=== PATIENT | female | born 1995 | race Caucasian/White ===

== ENCOUNTER 2019-01-28 13:56 | Observation (INO) | payer OTHER ==
[2019-01-28 14:40] LABS: Appearance SLIGHTLY CLOUDY (CLEAR); Bilirubin NEGATIVE (NEGATIVE); Blood NEGATIVE Ery/ul (0-5); Glucose NEGATIVE (NEGATIVE); Ketones NEGATIVE (NEGATIVE); Leukocyte Esterase NEGATIVE (NEGATIVE); Mucus SLIGHT /HPF (NEGATIVE); Nitrite NEGATIVE (NEGATIVE); Protein,Urine Dip NEGATIVE (Negative); Specific Gravity 1.012 (1.005-1.025); Urobilinogen NEGATIVE mg/dL (0-1)
[2019-01-28 14:57] LABS: Amphetamine,Urine NEGATIVE (NEGATIVE); Barbiturate,Urine NEGATIVE (NEGATIVE); Benzodiazepine,Urine NEGATIVE (NEGATIVE); Cocaine,Urine NEGATIVE (NEGATIVE); Methadone,Urine NEGATIVE (NEGATIVE); Opiate,Urine NEGATIVE (NEGATIVE); PCP,Urine NEGATIVE (NEGATIVE); THC,Urine NEGATIVE (NEGATIVE)
[2019-01-28 16:03] VITALS: BP 128/78; PULSE 75
== END 2019-01-28 15:58 | disposition home or self-care (01) ==
LOC: UNDOADMOB 13:56 → OB 13:56 → UNDODISOB 15:58
PROVIDERS: ADMIT Family Medicine; ATTEND Family Medicine
DX: Z34.83 Encounter for supervision of other normal pregnancy, third trimester (principal)
CPT/HCPCS: 80307; 81001; G0378

== ENCOUNTER 2020-02-11 07:38 | Emergency (ER) | payer OTHER ==
--- NOTE | 2020-02-11 08:07 | ERPHSYRPT ---
- History of Present Illness Time Seen by Provider: 02/11/20 07:55 Source: patient Exam Limitations: no limitations Patient Subjective Stated Complaint: pt here for headache to back of head for since last night Triage Nursing Assessment: pt alert, walked in, resp easy, skin w/d/p. has face mask on, moves all ext well. Physician History: This is a 24-year-old white female who states that she is having the worst headache she is ever had. She had another episode of the same 1 month ago. She states that she has no history of migraines. She does not recall any trauma to her head. Patient states both of these last 2 headaches have occurred around the time of her menstrual period. patient denies flulike symptoms. Patient drove herself to the emergency department. Timing/Duration: yesterday Quality: aching, throbbing Head Pain Location: occipital Severity of Pain-Max: moderate Severity of Pain-Current: moderate Recent Head Trauma: no recent headache/trauma Modifying Factors: Improves With: exposure to light, noise Associated Symptoms: denies symptoms Previous symptoms: same symptoms as today (Occurred once before approximately 1 month ago) Allergies/Adverse Reactions: No Known Drug Allergies Allergy (Verified 02/11/20 07:49) Home Medications: Norgestimate-Ethinyl Estradiol [Tri-Sprintec] 1 ea DAILY 02/11/20 [History] clonazePAM [Clonazepam] 1 ea TID 02/11/20 [History] Hx Tetanus, Diphtheria Vaccination/Date Given: No Hx Influenza Vaccination/Date Given: No Hx Pneumococcal Vaccination/Date Given: No Immunizations Up to Date: Yes Travel Risk - International Travel Have you traveled outside of the country in past 3 weeks: No - Coronavirus Screening Are you exhibiting any of the following symptoms?: Yes Symptoms: Vomiting/Diarrhea, Headaches/Body Aches/Fatigue Close contact with a COVID-19 positive Pt in past 14-21 Days: No - Review of Systems Constitutional: No Symptoms Eyes: No Symptoms Ears, Nose, & Throat: No Symptoms Respiratory: No Symptoms Cardiac: No Symptoms Abdominal/Gastrointestinal: Nausea, Vomiting Genitourinary Symptoms: No Symptoms Musculoskeletal: No Symptoms Skin: No Symptoms Neurological: Headache Psychological: No Symptoms Endocrine: No Symptoms Hematologic/Lymphatic: No Symptoms Immunological/Allergic: No Symptoms All Other Systems: Reviewed and Negative - Past Medical History Pertinent Past Medical History: Yes Neurological History: No Pertinent History ENT History: No Pertinent History Cardiac History: No Pertinent History Respiratory History: No Pertinent History Endocrine Medical History: No Pertinent History Musculoskeletal History: No Pertinent History GI Medical History: No Pertinent History History: No Pertinent History Psycho-Social History: Anxiety - Past Surgical History Past Surgical History: Yes Neuro Surgical History: No Pertinent History Cardiac: No Pertinent History Respiratory: No Pertinent History Gastrointestinal: No Pertinent History Genitourinary: No Pertinent History Musculoskeletal: No Pertinent History Female Surgical History: No Pertinent History - Social History Smoking Status: Current every day smoker Exposure to second hand smoke: Yes Drug Use: none Patient Lives Alone: No - Female History Hx Last Menstrual Period: now Hx Now: No - Nursing Vital Signs Nursing Vital Signs: Initial Vital Signs Temperature 97.8 F 02/11/20 07:42 Pulse Rate 79 02/11/20 07:42 Respiratory Rate 16 02/11/20 07:42 Blood Pressure 136/93 02/11/20 07:42 O2 Sat by Pulse Oximetry 100 02/11/20 07:42 Pain Scale Pain Intensity 9 - Physical Exam General Appearance: mild distress, alert, anxiety Eye Exam: PERRL/EOMI, eyes nml inspection Ears, Nose, Throat Exam: normal ENT inspection, moist mucous membranes Neck Exam: normal inspection, non-tender, supple, full range of motion Respiratory Exam: normal breath sounds, lungs clear, airway intact, No chest tenderness, No respiratory distress Cardiovascular Exam: regular rate/rhythm, normal heart sounds, normal peripheral pulses Gastrointestinal/Abdominal Exam: soft, normal bowel sounds, No tenderness Back Exam: normal inspection, normal range of motion, No CVA tenderness, No vertebral tenderness Extremity Exam: normal inspection, normal range of motion, pelvis stable Mental Status Exam: alert, oriented x 3, 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 Exam: normal hearing, normal speech, PERRL, tongue midline Coordination/Gait Exam: normal gait, normal cerebellar function Motor/Sensory Exam: no motor deficit, no sensory deficit Skin Exam: normal color, warm, dry Lymphatic Exam: No adenopathy SpO2 Interpretation: normal SpO2: 100 O2 Delivery: Room Air - Course Nursing assessment & vital signs reviewed: Yes Ordered Tests: Active Orders 24 hr Category Date Time Status HEAD WITHOUT CONTRAST [CT] Stat Exams 02/11/20 08:01 Taken Medication Summary Discontinued Medications Generic Name Dose Route Start Last Admin Trade Name Freq PRN Reason Stop Dose Admin Hydromorphone HCl 1 mg 02/11/20 08:14 02/11/20 08:31 Hydromorphone 1 Mg/Ml Ampule IM 02/11/20 08:15 1 mg STAT ONE Administration Hydromorphone HCl Confirm 02/11/20 08:30 Hydromorphone 1 Mg/Ml Ampule Administered 02/11/20 08:31 Dose 1 mg .ROUTE .STK-MED ONE Promethazine HCl 12.5 mg 02/11/20 08:14 02/11/20 08:32 Phenergan 25 Mg Inj IM 02/11/20 08:15 12.5 mg STAT ONE Administration Promethazine HCl Confirm 02/11/20 08:30 Phenergan 25 Mg Inj Administered 02/11/20 08:31 Dose 25 mg .ROUTE .STK-MED ONE - Progress Progress: re-examined, unchanged Air Movement: good Progress Note: 02/11/20 08:36 CAT scan of the head without contrast reveals low-lying cerebellar tonsils. Radiology states this could be related to mild cerebellar tonsillar ectopia or be accentuated by patient positioning. However they recommend a brain MRI with and without contrast to exclude a Chiari malformation. Otherwise there is no acute intracranial findings Blood Culture(s) Obtained: No Antibiotics given: No Counseled pt/family regarding: diagnosis, need for follow-up, rad results - Departure Departure Disposition: Home Clinical Impression: Headache Condition: Stable Critical Care Time: No Referrals: FLY RODAS MD [Primary Care Provider] - Additional Instructions: Follow-up with your primary care physician tomorrow, 02/12/2020 for further management and evaluation of the abnormalities on the current CAT scan that were reviewed with you. Outpatient MRI of the brain with and without contrast is recommended per radiology.
[2020-02-11] MEDS ORDERED: Hydromorphone 1 mg/ml Ampule IM ONE (08:14)
[2020-02-11] MEDS ORDERED: Phenergan 25 MG INJ IM ONE (08:14)
[2020-02-11] MEDS ORDERED: Phenergan 25 MG INJ ONE (08:30)
[2020-02-11] MEDS ORDERED: Hydromorphone 1 mg/ml Ampule ONE (08:30)
[2020-02-11 09:06] VITALS: PULSE 60
[2020-02-11 09:22] VITALS: BP 123/81; O2SAT 98
--- NOTE | 2020-02-11 21:50 | XRAY ---
Indication: Occipital headache. Photophobia. Multiple contiguous axial images obtained through the head without contrast. Comparison: None Low-lying cerebellar tonsils. No acute intracranial hemorrhage, abnormal extra-axial fluid collection, or mass effect. Fourth ventricle is midline without hydrocephalus. Serra-white matter differentiation preserved. Bony calvarium intact. Visualized paranasal sinuses and mastoid air cells are clear. Impression: Low-lying cerebellar tonsils. Remaining CT head without contrast exam is negative. Comment: Preliminary interpretation was made by [facility]. No critical discrepancy.
== END 2020-02-11 09:28 | disposition home or self-care (01) ==
LOC: ED 07:38
DX: R51 Headache (principal)
CPT/HCPCS: 70450; 96372; 99284; J1170; J2550